=== PATIENT | female | born 1975 | race Caucasian/White ===

== ENCOUNTER 2021-09-24 07:10 | Outpatient (CLI) | payer OTHER, SELFPAY | END 2021-09-24 07:11 | disposition home or self-care (01) | LOC: OP CLINIC 07:11 | PROVIDERS: PCP Family Medicine; Visit Provider Surgery | DX: Z12.11 Encounter for screening for malignant neoplasm of colon (principal); K63.5 Polyp of colon | CPT/HCPCS: 45385; 88305; 99153; J2250; J3010 ==

== ENCOUNTER 2024-06-08 07:47 | Outpatient (CLI) | payer BC, SELFPAY ==
--- NOTE | 2024-06-08 09:21 | P.ANES_ITS ---
Anesthesia Charges Start Date/Time Anesthesia Start Date: 06/08/24 Anesthesia Start Time: 08:53 Stop Date/Time Anesthesia Stop Date: 06/08/24 Anesthesia Stop Time: 09:21 Coding CPT Codes CPT Codes: ASHLY LWR INTST SCR COLSC - 33792 ([id number]) P1 - NORMAL HEALTHY PATIENT, QK - TRACK SERVICE WORKER 2-4 CNCRNT ANES PROC, QX - CHAIN MENDER SVC W/ MED DIRECTION
--- NOTE | 2024-06-08 09:21 | W.ANESCHARGE ---
Anesthesia Charges Start Date/Time Anesthesia Start Date: 06/08/24 Anesthesia Start Time: 08:53 Stop Date/Time Anesthesia Stop Date: 06/08/24 Anesthesia Stop Time: 09:21 Coding CPT Codes CPT Codes: ASHLY LWR INTST SCR COLSC - [id number] ([id number]) P1 - NORMAL HEALTHY PATIENT, QK - 911 EMERGENCY SERVICES DISPATCHER 2-4 CNCRNT ANES PROC, QX - HOT MIX OPERATOR SVC W/ MED DIRECTION
--- NOTE | 2024-06-08 09:27 | P.ANES_ITS ---
Anesthesia Charges Start Date/Time Anesthesia Start Date: 06/08/24 Anesthesia Start Time: 08:53 Stop Date/Time Anesthesia Stop Date: 06/08/24 Anesthesia Stop Time: 09:21 Coding CPT Codes CPT Codes: ASHLY LWR INTST SCR COLSC - [id number] ([id number]) P1 - NORMAL HEALTHY PATIENT, QK - FIBERGLASS BOAT ASSEMBLY SUPERVISOR 2-4 CNCRNT ANES PROC, QX - COATER CARBON PAPER SVC W/ MED DIRECTION
--- NOTE | 2024-06-08 09:27 | W.ANESCHARGE ---
Anesthesia Charges Start Date/Time Anesthesia Start Date: 06/08/24 Anesthesia Start Time: 08:53 Stop Date/Time Anesthesia Stop Date: 06/08/24 Anesthesia Stop Time: 09:21 Coding CPT Codes CPT Codes: ASHLY LWR INTST SCR COLSC - [id number] ([id number]) P1 - NORMAL HEALTHY PATIENT, QK - BODY TRIMMER UPHOLSTERER 2-4 CNCRNT ANES PROC, QX - AIX ARCHITECT SVC W/ MED DIRECTION
== END 2024-06-08 07:48 | disposition home or self-care (01) ==
LOC: OP CLINIC 07:51
PROVIDERS: PCP Family Medicine; Visit Provider Surgery
DX: Z12.11 Encounter for screening for malignant neoplasm of colon (principal); Z86.0100 Personal history of colon polyps, unspecified
CPT/HCPCS: 00812; 45378; J2704